=== PATIENT | female | born 1955 | race Native Hawaiian/Other Pacific Islander ===

== ENCOUNTER → 2018-08-04 08:59 | Outpatient (CLI) | payer BC, OTHER, MEDICAID, SELFPAY ==
--- NOTE | 2018-08-04 | DI.MRI.S_ITS ---
PROCEDURE: MR KNEE LT WO CON INDICATIONS: CHRONIC PAIN OF LEFT KNEE TECHNIQUE: Noncontrast sagittal PD fast spin echo and T2 fast spin echo with fat saturation, sagittal 3-D FLASH with fat saturation; coronal T1 spin echo and PD fast spin echo with fat saturation, and axial PD fast spin echo with fat saturation through the knee. COMPARISON: None. FINDINGS: Image quality: Excellent. Menisci: Lateral meniscus appears grossly intact. There is complex macerated tear of the medial meniscal body. There is also undersurface irregularity and signal change involving the posterior horn of the medial meniscus. Partial extrusion of the medial meniscal body Cruciate ligaments: The anterior and posterior cruciate ligaments appear intact. Medial structures: The medial collateral ligament appears intact, although medial bowling and adjacent soft tissue edema. This may be reactive to medial meniscal tear versus low-grade MCL sprain. The posterior oblique ligament, semimembranosus tendon insertions, oblique popliteal ligament, and meniscocapsular junction appear intact. Mild pes anserinus bursitis. Lateral structures: The lateral collateral ligament, long and short heads of the biceps femoris tendon appear intact. The popliteus tendon appears normal; the popliteofibular ligament appears intact. The posterosuperior and anteroinferior popliteomeniscal fascicles appear intact. The arcuate and fabellofibular ligaments appear intact, on either side of the lateral inferior geniculate artery. Iliotibial band appears normal. Anterior structures: Superficial infrapatellar and pretibial subcutaneous edema and fluid. The quadriceps and patellar tendons appear intact. Patellar alignment is normal. No femoral trochlear dysplasia or ventral trochlear prominence. No edema in the infrapatellar fat pad. Bones and cartilage: No bone marrow contusions or fractures. Within the medial compartment, there is diffuse partial-thickness loss of the femoral and tibial articular cartilage. Within the lateral compartment, no focal articular cartilage defect is seen. Within the patellofemoral compartment, diffuse patellar full-thickness articular cartilage loss. There is also partial-thickness loss of the cartilage overlying the central and lateral femoral trochlear Joint space: Moderate joint effusion is present. Multiple loose bodies are seen for example adjacent to the posterior aspect of the PCL, image 75 series 9. Additional loose body present within the medial joint space, image 12 series 11, image 19 series 6. IMPRESSION: Complex medial meniscal tear involving the body and posterior horn with partial extrusion. 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 Moderate joint effusion. Multiple loose bodies as detailed above. Mild pes anserinus bursitis. Prominent superficial infrapatellar and pretibial subcutaneous edema/fluid. Dictated by: Juan J Hawk M.D. on 08/04/2018 at 11:52 Approved by: Juan J Hawk M.D. on 08/04/2018 at 12:01
== END ==
PROVIDERS: PCP Family Medicine; Visit Provider Orthopaedic Surgery
DX: M23.42 Loose body in knee, left knee (principal); M25.562 Pain in left knee; G89.29 Other chronic pain; M17.12 Unilateral primary osteoarthritis, left knee; M25.462 Effusion, left knee; M70.52 Other bursitis of knee, left knee; R60.9 Edema, unspecified
CPT/HCPCS: 73721

== ENCOUNTER → 2018-11-22 17:30 | Outpatient (CLI) | payer BC, OTHER, MEDICAID, SELFPAY ==
--- NOTE | 2018-11-22 | DI.MRI.S_ITS ---
PROCEDURE: MR CERVICAL SPINE WO CON INDICATIONS: CERVICALGIA TECHNIQUE: Noncontrast sagittal T1 spin echo and T2 fast spin echo, sagittal STIR, foraminal oblique sagittal T2 fast spin echo, and axial gradient echo or T2 fast spin echo through the cervical spine. COMPARISON: None. FINDINGS: Image quality: Excellent. Alignment and Curvature: Straightening of the normal cervical lordosis and grade 1 anterolisthesis of C4 on C5. Presumed T2 vertebral body hemangioma Bone Marrow: Marrow demonstrates normal overall signal. Spinal Cord: Visualized spinal cord has normal size and signal. No cerebellar tonsillar herniation. Paraspinous Soft Tissues: No paravertebral masses. Prevertebral soft tissues are normal in thickness. C2-C3: Normal appearance. C3-C4: Normal appearance. C4-C5: Bilateral uncovertebral arthropathy and posterior intervening disc osteophyte complex, and bilateral facet arthropathy. Moderate canal narrowing. Mild bilateral foraminal stenosis, right greater than left. C5-C6: Bilateral uncovertebral arthropathy and posterior intervening disc osteophyte complex, and bilateral facet arthropathy. Superimposed left paracentral disc protrusion. Mild central canal narrowing predominantly left-sided. Moderate bilateral foraminal narrowing. C6-C7: Bilateral uncovertebral arthropathy and posterior intervening disc osteophyte complex, left greater than right. Bilateral facet arthropathy. Minimal central canal narrowing. No definite right foraminal stenosis. Severe left-sided foraminal narrowing C7-T1: Normal appearance. IMPRESSION: Mid to lower cervical spondylosis and diffuse facet arthropathy. Severe left C6-C7 foraminal stenoses. Moderate bilateral C5-C6 foraminal narrowing. Moderate C4-C5 canal narrowing. Dictated by: Juan J Hawk M.D. on 11/23/2018 at 9:03 Approved by: Juan J Hawk M.D. on 11/23/2018 at 9:22
--- NOTE | 2018-11-22 | DI.MRI.S_ITS ---
PROCEDURE: MR SHOULDER LT WO CON INDICATIONS: PAIN IN LEFT SHOULDER TECHNIQUE: Noncontrast oblique coronal T2 fast spin echo with fat saturation, oblique sagittal T1 spin echo and T2 fast spin echo with fat saturation, axial T1 spin echo and T2 fast spin echo with fat saturation through the shoulder. COMPARISON: [facility] [place], [place], XR SHOULDER 2+ VIEWS LEFT, 11/10/2018, 14:35. FINDINGS: Image quality: Diagnostic with mild motion artifact. Rotator cuff: The supraspinatus, infraspinatus, subscapularis, and teres minor appear intact. No rotator cuff fatty muscle atrophy. Bones and bursae: No bone marrow contusions or fractures. There is mild to moderate acromioclavicular joint degeneration. The acromion demonstrates conventional anatomy, without an os acromiale. Minimal subacromial-subdeltoid bursal fluid is present. Capsule and soft tissues: In the absence of intra-articular contrast, the labrum and glenohumeral ligaments appear grossly intact. The long head of the biceps tendon demonstrates normal location and morphology. The rotator interval appears normal, without fibrosis. The coracohumeral ligament is normal in thickness. IMPRESSION: 1. [id number] acromioclavicular joint degeneration with mild subacromial/subdeltoid bursitis. 2. No discrete rotator cuff tear. Dictated by: Everardo Hedrick M.D. on 11/23/2018 at 9:51 Approved by: Everardo Hedrick M.D. on 11/23/2018 at 10:33
== END ==
PROVIDERS: PCP Family Medicine; Visit Provider Orthopaedic Surgery
DX: M54.2 Cervicalgia (principal); M25.512 Pain in left shoulder; M47.812 Spondylosis without myelopathy or radiculopathy, cervical region; M48.02 Spinal stenosis, cervical region; M19.012 Primary osteoarthritis, left shoulder; M75.52 Bursitis of left shoulder
CPT/HCPCS: 72141; 73221

== ENCOUNTER 2021-01-14 13:49 | Emergency (ER) | payer BC, SELFPAY ==
[2021-01-14 13:59] VITALS: BP 111/63; PULSE 88; RESP 12; TEMP 36.7; O2SAT 99; BMI 30.7
--- NOTE | 2021-01-14 14:55 | ED_ITS ---
HPI - Back Pain/Injury <TYLER Dobbs - Last Filed: 01/14/21 19:13> General Chief Complaint: Urogenital-Female Stated Complaint: Can't Move, Can't Bend Over, Back Pain Time Seen by Provider: 01/14/21 14:51 Source: patient Mode of arrival: Ambulatory Limitations: no limitations History of Present Illness HPI Narrative: This is a 65 year female, nonsmoker, has past medical history s ignificant for rheumatoid arthritis, insomnia, remote history of kidney stone pants to ED with family with chief complain of nontraumatic bilateral low back pain wraps around the side bilaterally for last 3 days. Patient woke up the pain that has been progressively gotten worse with movements, lifting, bending over, twisting motion and with deep breathing. Patient denies fever, chills, nausea or vomiting. Patient reports she is continent for bowel and bladder function and denies saddle anesthesia. Patient denies history of back surgeries. Patient reports urinary frequency, urgency but denies burning with urination or hematuria. Patient thinks the cause of low back pain is due to my kidney. Patient reports past when she had kidney stone the pain felt similar. Patient denies chest pain, dyspnea, or abdominal pain. Patient denies usual skin rashes on affected site. Patient had a usual bowel movements yesterday. Patient describes pain as the sharpest, constant and 10/10. However, if she does not move and resting in one position, pain improves. Patient had taken Flexeril from the past use due to pinched nerve in cervial without any relief. She also had taken 2 tabs of Advil without improvements. Related Data Home Medications Medication Instructions Recorded Confirmed minocycline 100 mg PO QDAY #0 07/03/17 naproxen-esomeprazole [Vimovo] 1 tab PO BID #0 07/03/17 pantoprazole 40 mg PO BID #0 07/03/17 zolpidem [Ambien] PO HS #0 07/03/17 diphenhydramine HCl [Benadryl 25 mg PO Q6HP PRN #0 12/25/17 Allergy] ibuprofen [Advil Liqui-Gel] 200 mg PO #2 12/25/17 cyclobenzaprine mg 01/14/21 hydroxychloroquine 01/14/21 triazolam 01/14/21 Previous Rx's Medication Instructions Recorded hydrocodone-acetaminophen 1 tab PO Q8H PRN #10 tab 01/14/21 Allergies Allergy/AdvReac Type Severity Reaction Status Date / Time codeine [CODEINE] Allergy Unknown RASH, ITCHY Verified 01/14/21 16:35 Review of Systems <TYLER Dobbs - Last Filed: 01/14/21 19:13> Review of Systems Narrative: General: Denies fever, chills, fatigue, malaise, sweats. HEENT: Denies sinus pain, ear pain, sore throat, difficulty swallowing, dizziness. Respiratory: Denies dyspnea, cough, wheezing, hemoptysis, sputum. Cardiovascular: Denies chest pain, palpitations, orthopnea, edema. Gastrointestinal: Denies nausea, vomiting, abdominal pain, diarrhea, constipation, melena. : See HPI Musculoskeletal: See HPI Skin: Denies rash, skin lesions, or other. Neurologic: Denies weakness, headache, numbness, change in speech, confusion, seizures, incoordination. Psychiatric: No concerning psychosocial issues. 12-point review of systems is negative except for those stated above. Patient History <TYLER Dobbs - Last Filed: 01/14/21 19:13> Medical History (Updated 01/14/21 @ 17:57 by TYLER Dobbs) Kidney stone Surgical History (Updated 01/14/21 @ 15:22 by TYLER Dobbs) History of cholecystectomy Social History Smoking Status: Never smoker alcohol intake: never substance use type: does not use Smoking Status: Never smoker Substance Use Type: does not use Exam <TYLER Dobbs - Last Filed: 01/14/21 19:13> Narrative Exam Narrative: GEN: Alert, oriented x 3, well nourished, and appears to be in discomfort. With little movements, complaints of with facial grimacing and moaning and tearful. Ambulatory to room 13 from waiting area. Head: Normal cephalic, atraumatic. No scalp or temporal tenderness, palpable mass or rash. EYES: Pupils are equal, round, and reactive to light and accommodation. There is no subconjunctival hemorrhage, exudate and sclera non-icteric. ENT: Hearing grossly intact. Nose without bleeding, purulent discharge or deviation. Airway patent. Neck: Trachea in midline. No JVD, non-tender without lymphadenopathy. No masses or thyroid megaly. Supple, non-tender and no meningeal signs. CARDIAC: Normal regular rate and rhythm without murmurs, gallops, or rubs. No chest wall tenderness. No peripheral edema, cyanosis or pallor. Capillary refill is less than 2 seconds. RESPIRATORY: Lungs are clear to auscultate bilaterally. No cough, wheezes, rales, or rhonchi. No stridor, respiratory distress, increase work of breathing, or accessary muscle used. ABD: Abdomen soft, nontender and non-distended. No guarding or rebound tenderness to palpate. Bowel sounds are normal in all 4 quadrants. There is no palpable masses or organomegaly. EXT: Full painless ROM of all extremities with no loss of sensation, strength, effusion or edema. SKIN: Warm, dry, normal color for patient. No erythema, lesions or rash over visible areas. BACK: No spinous or paraspinous tenderness to palpate. No deformity or crepitance. No flank tenderness with percussion. negative leg raise. Bilateral lower extremities with intact sensation and equal strength. NEUROLOGICAL: Alert and oriented to place, time and person. Sensation and motor function intact bilaterally. No facial droops, dysphasia. PSYCHIATRIC: Good judgement and reason, without hallucinations, abnormal affect or abnormal behaviors during the examination. Patient is not suicidal. Initial Vital Signs Initial Vital Signs: Vital Signs Temperature 98.1 F 01/14/21 13:59 Pulse Rate 88 01/14/21 13:59 Respiratory Rate 12 01/14/21 13:59 Blood Pressure 111/63 01/14/21 13:59 Pulse Oximetry 99 01/14/21 13:59 <Mahamed Rivera DO - Last Filed: 01/15/21 07:14> Initial Vital Signs Initial Vital Signs: Vital Signs Temperature 98.1 F 01/14/21 13:59 Pulse Rate 88 01/14/21 13:59 Respiratory Rate 12 01/14/21 13:59 Blood Pressure 111/63 01/14/21 13:59 Pulse Oximetry 99 01/14/21 13:59 Scores <TYLER Dobbs - Last Filed: 01/14/21 19:13> GCS Rashawn coma scale eye opening: Spontaneous Rashawn coma scale verbal response: Orientated Rashawn coma scale motor response: Obey commands Rashawn coma scale total score: 15 qSOFA Altered Mental Status (GCS <15): No Respiratory rate greater than/equal to 22: No Systolic blood pressure less than or equal to 100: No qSOFA Total: 0 0-1 Not High Risk 1-3 High risk Course <Joe TYLER Youssef - Last Filed: 01/14/21 19:13> Orders Ordered: Discontinued Medications Hydrocodone Bitart/Acetaminophen (Hydrocodone/Acet 5/325 Tablet) 1 tab PO NOW ONE Stop: 01/14/21 17:58 Last Admin: 01/14/21 18:39 Dose: 1 tab Documented by: MORENA Cyclobenzaprine HCl (Cyclobenzaprine 10 Mg Tablet) 10 mg PO NOW ONE Stop: 01/14/21 17:58 Last Admin: 01/14/21 18:39 Dose: 10 mg Documented by: MORENA Hydromorphone HCl (Hydromorphone 0.5 Mg Inj) 0.5 mg IV NOW ONE Stop: 01/14/21 16:29 Last Admin: 01/14/21 16:36 Dose: 0.5 mg Documented by: MORENA Sodium Chloride (Normal Saline 0.9%) 1,000 mls @ 1,000 mls/hr IV BOLUS ONE Stop: 01/14/21 17:51 Last Infusion: 01/14/21 19:24 Dose: 0 mls/hr Documented by: Admin: 01/14/21 17:10 Dose: 1,000 mls/hr Documented by: MORENA Ketorolac Tromethamine (Ketorolac 30 Mg/Ml Vial) 15 mg IV NOW ONE Stop: 01/14/21 14:52 Last Admin: 01/14/21 15:30 Dose: 15 mg Documented by: MORENA Lidocaine (Lidocaine Patch 1 Each Adh..Patch) 1 each TOP NOW ONE Stop: 01/14/21 16:55 Last Admin: 01/14/21 17:09 Dose: 1 each Documented by: MORENA Lidocaine (Remove Lidocaine Patch) 1 each TOP 0500 [facility] Reevaluation(s) Reevaluation #1: Patient reports pain recurs with movements and rates as 8 to 9/10 and requesting stronger medications after Toradol. Time: 16:25 Reevaluation #2: Patient reports pain much improved. Discussed with patient on unremarkable CT results along labs with patient. Informed patient will get lumbar x-ray test done rule out any bony abnormality. Time: 16:59 Reevaluation #3: No allergic reaction after the [place]. Will be discharged to home with [place] pain management Time: 19:09 Vital Signs Vital signs: Vital Signs - 8 hr 01/14/21 13:59 Temperature 98.1 F Pulse Rate 88 Respiratory Rate 12 Blood Pressure 111/63 Pulse Oximetry 99 <Mahamed Rivera DO - Last Filed: 01/15/21 07:14> Orders Ordered: Discontinued Medications Hydrocodone Bitart/Acetaminophen (Hydrocodone/Acet 5/325 Tablet) 1 tab PO NOW ONE Stop: 01/14/21 17:58 Last Admin: 01/14/21 18:39 Dose: 1 tab Documented by: MORENA Cyclobenzaprine HCl (Cyclobenzaprine 10 Mg Tablet) 10 mg PO NOW ONE Stop: 01/14/21 17:58 Last Admin: 01/14/21 18:39 Dose: 10 mg Documented by: MORENA Hydromorphone HCl (Hydromorphone 0.5 Mg Inj) 0.5 mg IV NOW ONE Stop: 01/14/21 16:29 Last Admin: 01/14/21 16:36 Dose: 0.5 mg Documented by: MORENA Sodium Chloride (Normal Saline 0.9%) 1,000 mls @ 1,000 mls/hr IV BOLUS ONE Stop: 01/14/21 17:51 Last Infusion: 01/14/21 19:24 Dose: 0 mls/hr Documented by: Admin: 01/14/21 17:10 Dose: 1,000 mls/hr Documented by: MORENA Ketorolac Tromethamine (Ketorolac 30 Mg/Ml Vial) 15 mg IV NOW ONE Stop: 01/14/21 14:52 Last Admin: 01/14/21 15:30 Dose: 15 mg Documented by: MORENA Lidocaine (Lidocaine Patch 1 Each Adh..Patch) 1 each TOP NOW ONE Stop: 01/14/21 16:55 Last Admin: 01/14/21 17:09 Dose: 1 each Documented by: MORENA Lidocaine (Remove Lidocaine Patch) 1 each TOP 0500 [facility] Vital Signs Vital signs: Vital Signs - 8 hr 01/14/21 13:59 Temperature 98.1 F Pulse Rate 88 Respiratory Rate 12 Blood Pressure 111/63 Pulse Oximetry 99 MDM - Back Pain/Injury <Joe MikaelTYLER - Last Filed: 01/14/21 19:13> Differential Diagnosis Differential diagnosis: Likely strain of lumbar region, renal colic, pyelonephritis, AAA and discitis Medical Records Attestation: I reviewed the patient's medical records. Lab Data Attestation: I reviewed the patient's lab results. Result diagrams: 01/14/21 15:38 01/14/21 15:38 Labs: Lab Results 01/14/21 01/14/21 Range/Units 15:38 15:38 WBC 7.2 (4.5-11.0) X10^3/uL RBC 4.36 (4.0-5.2) X10^6/uL Hgb 12.9 (12.0-16.0) g/dL Hct 37.4 (36-46) % MCV 85.9 (80-100) fL MCH 29.6 (26-34) PG MCHC 34.4 (30-36) % RDW 13.3 (11.6-14.8) % Plt Count 277 (150-400) X10^3/uL Neut % (Auto) 47.5 L (50-75) % Lymph % (Auto) 38.2 (25-40) % Sargent % (Auto) 10.1 (3-14) % Eos % (Auto) 3.3 (2-4) % Baso % (Auto) 0.9 (0-2) % Neut # (Auto) 3400 (1938-4535) /uL Lymph # (Auto) 2700 (1609-8918) /uL Sargent # (Auto) 700 (0-900) /uL Eos # (Auto) 200 (0-450) /uL Baso # (Auto) 100 (0-100) /uL Sodium 140 (137-145) mmol/L Potassium 4.1 (3.4-5.1) mmol/L Chloride 105 (98-107) mmol/L Carbon Dioxide 30 (22-32) mmol/L BUN 18 H (7-17) mg/dL Creatinine 0.53 (0.52-1.04) mg/dL Estimated GFR > 60.0 (>60) mL/min BUN/Creatinine Ratio 34.0 H (6-22) Glucose 96 (80-110) mg/dL Calcium 9.2 (8.4-10.2) mg/dL Total Bilirubin 0.2 (0.2-1.3) mg/dL AST 35 (14-36) IU/L ALT 18 (<35) IU/L Alkaline Phosphatase 79 (38-126) U/L Total Protein 7.3 (6.3-8.2) g/dL Albumin 4.2 (3.5-5.0) g/dL Globulin 3.1 (1.7-4.1) g/dL Albumin/Globulin Ratio 1.4 (1.0-2.8) Urine Dip Bedside Urine Glucose Negative Bedside Urine Bilirubin - Negative Bedside Urine Ketone - Negative Urine Specific Carlton 1.025 Bedside Urine Occult Blood - Negative Bedside Urine pH 6 Bedside Urine Protein - Negative Bedside Urine Urobilinogen - Negative Bedside Urine Nitrite - Negative Bedside Urine Leukocytes - Negative Esterase Imaging Data CT-KUB: Radiologist's Impression: [address] [id number] Scan ReportSigned Patient: Kita Cohen MMR#: [id number]: 6Acct:[id number]/Sex: 65 / FDate of Service: 01/14/21Loc: EDAccession Number: [id number] Procedure: CT kidney ureter bladder (KUB) Ordering Provider: Joe Youssef PROCEDURE: CT KIDNEY URETER BLADDER (KUB) INDICATIONS: bilateral low back pain TECHNIQUE: Noncontrast 5 mm thick sections acquired from the diaphragms to the symphysis. 5 mm thick coronal and sagittal reformats were then performed. For radiation dose reduction, the following was used: automated exposure control, adjustment of mA and/or kV according to patient size. COMPARISON: None. FINDINGS: Image quality: Excellent. Lung bases: Lung bases are clear. Visualized portion of right breast implant is grossly intact. Heart size is normal. Urinary system: Both kidneys are normal in size. No kidney stones. No hydronephrosis or perinephric fat stranding. There is suggestion of a midpole left renal cyst measures 1.5 cm in size. Both ureters appear non-dilated throughout their expected courses. Bladder wall thickness is normal; no calcified bladder stones. Other solid organs: Liver is normal in size. Gallbladder is surgically ab sent.. Pancreas is normal in contours. Spleen is normal in size. No adrenal nodules. Peritoneum and bowel: Unenhanced bowel loops demonstrate normal wall thickness and caliber. No free fluid or air. Nodes and vessels: No retroperitoneal or mesenteric adenopathy by size criteria. Surgical clips are noted in bilateral retroperitoneal space anterior to the psoas muscles. Aorta and inferior vena cava are normal in caliber. Abdominal wall: No ventral hernias. Pelvis: No free pelvic fluid. No inguinal hernias or adenopathy. Bones: No suspicious bony lesions. No vertebral body compression fractures. IMPRESSION: 1. No renal stone or hydronephrosis. No gross abnormality is seen in bilateral ureters and urinary bladder. 2. No bowel obstruction or abnormal bowel wall thickening. No free fluid or free air. 3. Postsurgical changes in bilateral retroperitoneal space as above, suggest clinical correlation. Dictated by: Wilian Herrera M.D. on 01/14/2021 at 16:21 Approved by: Wilian Herrera M.D. 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 COMPARISON: Located Within [facility], CT, CT KIDNEY URETER BLADDER (KUB), 01/14/2021, 15:57. FINDINGS: Bones: 5 [id number] vertebrae are present. There is normal bony alignment. No vertebral body compression fractures. No suspicious bony lesions. Sclerotic arthropathy noted in the lower lumbar spine. Soft tissues: Overlying bowel gas pattern is normal. No suspicious soft tissue calcifications. Vascular paraspinal collaterals and the surgical clips in the right upper quadrant noted. 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 on 01/14/2021 at 16:29 Approved by: Nico Bolanos M.D. on 01/14/2021 at 16:40 MDM Narrative Medical decision making narrative: This is a 65 year female who presents to ED with chief complain of 3 day duration of bilateral low back pain into bilateral side which has been progressively worse. Patient is not currently on anticoagulants, history of cancers, back surgeries, cardiac problems or hyperlipidemia. Patient denies fever, chills or other constitutional symptoms. Urine test is negative for infection. Normal H&H of 12.9/37.4. No leukocytosis to consider other infectious etiology. Kidney functions with normal creatinine of 0.53 and estimated GFR >60. Patient is dehydrated with elevated BUN of 18 and BUN/creatinine ratio of 34.0. Concerned for AAA, kidney abnormality and etc, CT of KUB ordered. CT test shows no renal stones or hydronephrosis. Bowel obstructions or fluid or free air. Postsurgical changes in bilateral retroperitoneal space with surgical clips after the delivery of her son more than 40 years ago which she was not able to recall initially. Pain has managed with IV Toradol with limited improvement. Patient medicated with additional Dilaudid and Lidocaine patch. Lumbar x-ray test shows degenerative arthropathy in lower lumbar spine and no compression fractures appreciated. For trial dose given patient has allergic to codeine has no history of can [place], patient was medicated with Flexeril and [place] dose before discharged to home without reactions. Pain moderately improved while in ED. patient advised to follow-up with Dr. Padron and return precautions discussed which she verbalized understanding in agreement with treatment plan. Discussed narcotic pain medication precautions and advised to avoid taking with Ambien, Flexeril at the same time. <Mahamed Rivera, - Last Filed: 01/15/21 07:14> Lab Data Labs: Lab Results 01/14/21 01/14/21 Range/Units 15:38 15:38 WBC 7.2 (4.5-11.0) X10^3/uL RBC 4.36 (4.0-5.2) X10^6/uL Hgb 12.9 (12.0-16.0) g/dL Hct 37.4 (36-46) % MCV 85.9 (80-100) fL MCH 29.6 (26-34) PG MCHC 34.4 (30-36) % RDW 13.3 (11.6-14.8) % Plt Count 277 (150-400) X10^3/uL Neut % (Auto) 47.5 L (50-75) % Lymph % (Auto) 38.2 (25-40) % Sargent % (Auto) 10.1 (3-14) % Eos % (Auto) 3.3 (2-4) % Baso % (Auto) 0.9 (0-2) % Neut # (Auto) 3400 (7790-4685) /uL Lymph # (Auto) 2700 (3753-9667) /uL Sargent # (Auto) 700 (0-900) /uL Eos # (Auto) 200 (0-450) /uL Baso # (Auto) 100 (0-100) /uL Sodium 140 (137-145) mmol/L Potassium 4.1 (3.4-5.1) mmol/L Chloride 105 (98-107) mmol/L Carbon Dioxide 30 (22-32) mmol/L BUN 18 H (7-17) mg/dL Creatinine 0.53 (0.52-1.04) mg/dL Estimated GFR > 60.0 (>60) mL/min BUN/Creatinine Ratio 34.0 H (6-22) Glucose 96 (80-110) mg/dL Calcium 9.2 (8.4-10.2) mg/dL Total Bilirubin 0.2 (0.2-1.3) mg/dL AST 35 (14-36) IU/L ALT 18 (<35) IU/L Alkaline Phosphatase 79 (38-126) U/L Total Protein 7.3 (6.3-8.2) g/dL Albumin 4.2 (3.5-5.0) g/dL Globulin 3.1 (1.7-4.1) g/dL Albumin/Globulin Ratio 1.4 (1.0-2.8) Urine Dip Bedside Urine Glucose Negative Bedside Urine Bilirubin - Negative Bedside Urine Ketone - Negative Urine Specific Carlton 1.025 Bedside Urine Occult Blood - Negative Bedside Urine pH 6 Bedside Urine Protein - Negative Bedside Urine Urobilinogen - Negative Bedside Urine Nitrite - Negative Bedside Urine Leukocytes - Negative Esterase Discharge Plan Departure Patient Disposition: Home Clinical Impression: Low back pain Qualifiers: Chronicity: acute Back pain laterality: bilateral Sciatica presence: without sciatica Qualified Code(s): M54.5 - Low back pain Instructions: DI for Low Back Pain Activity Restrictions/Additional Instructions: You have been diagnosed with [bilateral low back pain. Labs are unremarkable except mild dehydration. CT test of abdomen pelvis out acute findings. Lumbar spine test shows degenerative arthropathy in the lower lumbar spine. Urine test was negative for infection.]. What to do: *Take your medications as directed. You were treated with IV Toradol, Dilaudid, Lido patch in ED and medicated with [place] and Flexeril before dc to home. You can continue to use [id number] lidocaine patch and using Flexeril. Please avoid taking [place], Ambien, Flexeril at the same time since this can cause increasing in sedation. Lidocaine patch stays on for 12 hours and off for 12 hours. You can continue to take NSAIDs including ibuprofen, Naprosyn, Advil with food as needed for pain. You can add [id number] Tylenol 650 mg up to 3 times a day as needed for pain. *Follow up with your primary care provider in 2-3 days, call for an appointment. Let them know you were seen in the ED and that we asked you to be seen in follow up. *Return to ED if you have any new, worsening, or concerning symptoms, such as [worsening pain, continence, numbness/weakness/tingling to lower extremities, unusual rashes on her back, fever, chest pain, breathing difficulty or any acute concerns]. Prescriptions: New hydrocodone-acetaminophen 5-325 mg tablet 1 tab PO Q8H PRN (Reason: pain) Qty: 10 RF: 0 No Action pantoprazole 40 MG tablet,delayed release (DR/EC) 40 mg PO BID Qty: 0 RF: 0 zolpidem [Ambien] 10 mg tablet PO HS Qty: 0 RF: 0 minocycline 100 MG capsule 100 mg PO QDAY Qty: 0 RF: 0 naproxen-esomeprazole [Vimovo] 500 MG/20 MG tablet,IR,delayed rel,biphasic 1 tab PO BID Qty: 0 RF: 0 diphenhydramine HCl [Benadryl Allergy] 25 MG tablet 25 mg PO Q6HP PRNQty: 0 RF: 0 ibuprofen [Advil Liqui-Gel] 200 MG capsule 200 mg PO Qty: 2 RF: 0 cyclobenzaprine 10 mg tablet RF: 0 triazolam 0.125 mg tablet RF: 0 hydroxychloroquine 200 mg tablet RF: 0 Referrals: Daily Phan DO [Primary Care Provider] -
[2021-01-14] MEDS: KETOROLAC 30 MG/ML VIAL 15 MG IV (15:30)
--- NOTE | 2021-01-14 15:39 | DI.CT.S_ITS ---
PROCEDURE: CT KIDNEY URETER BLADDER (KUB) INDICATIONS: bilateral low back pain TECHNIQUE: Noncontrast 5 mm thick sections acquired from the diaphragms to the symphysis. 5 mm thick coronal and sagittal reformats were then performed. For radiation dose reduction, the following was used: automated exposure control, adjustment of mA and/or kV according to patient size. COMPARISON: None. FINDINGS: Image quality: Excellent. Lung bases: Lung bases are clear. Visualized portion of right breast implant is grossly intact. Heart size is normal. Urinary system: Both kidneys are normal in size. No kidney stones. No hydronephrosis or perinephric fat stranding. There is suggestion of a midpole left renal cyst measures 1.5 cm in size. Both ureters appear non-dilated throughout their expected courses. Bladder wall thickness is normal; no calcified bladder stones. Other solid organs: Liver is normal in size. Gallbladder is surgically absent.. Pancreas is normal in contours. Spleen is normal in size. No adrenal nodules. Peritoneum and bowel: Unenhanced bowel loops demonstrate normal wall thickness and caliber. No free fluid or air. Nodes and vessels: No retroperitoneal or mesenteric adenopathy by size criteria. Surgical clips are noted in bilateral retroperitoneal space anterior to the psoas muscles. Aorta and inferior vena cava are normal in caliber. Abdominal wall: No ventral hernias. Pelvis: No free pelvic fluid. No inguinal hernias or adenopathy. Bones: No suspicious bony lesions. No vertebral body compression fractures. IMPRESSION: 1. No renal stone or hydronephrosis. No gross abnormality is seen in bilateral ureters and urinary bladder. 2. No bowel obstruction or abnormal bowel wall thickening. No free fluid or free air. 3. Postsurgical changes in bilateral retroperitoneal space as above, suggest clinical correlation. Dictated by: Wilian Herrera M.D. on 01/14/2021 at 16:21 Approved by: Wilian Herrera M.D. on 01/14/2021 at 16:28
[2021-01-14 15:51] LABS: Add Manual Diff / Slide Review NO; Basophils Absolute Auto 100 /uL (0-100); Basophils Percent Auto 0.9 % (0-2); Eosinophils Absolute Auto 200 /uL (0-450); Eosinophils Percent Auto 3.3 % (2-4); Hematocrit 37.4 % (36-46); Hemoglobin 12.9 g/dL (12.0-16.0); Lymphocytes Absolute Auto 2700 /uL (1100-4500); Lymphocytes Percent Auto 38.2 % (25-40); Mean Corpuscular HGB Conc 34.4 % (30-36); Mean Corpuscular Hemoglobin 29.6 PG (26-34); Mean Corpuscular Volume 85.9 fL (80-100); Monocytes Absolute Auto 700 /uL (0-900); Monocytes Percent Auto 10.1 % (3-14); Neutrophils Absolute Auto 3400 /uL (1500-7000); Neutrophils Percent Auto 47.5 % (50-75); Platelet Count 277 X10^3/uL (150-400); Red Blood Cell Count 4.36 X10^6/uL (4.0-5.2); Red Cell Distribution Width 13.3 % (11.6-14.8); White Blood Cell Count 7.2 X10^3/uL (4.5-11.0)
[2021-01-14] MEDS: HYDROMORPHONE 0.5 MG INJ IV (16:36)
[2021-01-14 16:40] LABS: Alanine Aminotransferase 18 IU/L (<35); Albumin 4.2 g/dL (3.5-5.0); Albumin Globulin Ratio 1.4 (1.0-2.8); Alkaline Phosphatase 79 U/L (38-126); Aspartate Aminotransferase 35 IU/L (14-36); Bilirubin Total 0.2 mg/dL (0.2-1.3); Blood Urea Nitrogen 18 mg/dL (7-17); Calcium 9.2 mg/dL (8.4-10.2); Carbon Dioxide 30 mmol/L (22-32); Chloride 105 mmol/L (98-107); Estimated Glomerular Filt Rate > 60.0 mL/min (>60); Globulin 3.1 g/dL (1.7-4.1); Glucose 96 mg/dL (80-110); HEMOLYSIS < 15 (0-50); Potassium 4.1 mmol/L (3.4-5.1); Sodium 140 mmol/L (137-145); Total Protein 7.3 g/dL (6.3-8.2)
--- NOTE | 2021-01-14 16:52 | DI.RAD.S_ITS ---
PROCEDURE: XR LUMBAR SPINE 2-3V INDICATIONS: bilateral low back pain TECHNIQUE: 3 views of the lumbar spine were acquired. COMPARISON: [facility], CT, CT KIDNEY URETER BLADDER (KUB), 01/14/2021, 15:57. FINDINGS: Bones: 5 [id number] vertebrae are present. There is normal bony alignment. No vertebral body compression fractures. No suspicious bony lesions. Sclerotic arthropathy noted in the lower lumbar spine. Soft tissues: Overlying bowel gas pattern is normal. No suspicious soft tissue calcifications. Vascular paraspinal collaterals and the surgical clips in the right upper quadrant noted. 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 on 01/14/2021 at 16:29 Approved by: Nico Bolanos M.D. on 01/14/2021 at 16:40
[2021-01-14] MEDS: LIDOCAINE PATCH 1 EACH ADH..PATCH TOP (17:09)
[2021-01-14] MEDS: SODIUM CHLORIDE 0.9% 1,000 ML 1000 ML IV (17:10)
[2021-01-14] MEDS: CYCLOBENZAPRINE 10 MG TABLET PO (18:39)
[2021-01-14] MEDS: HYDROCODONE/ACET 5/325 TABLET 1 TAB PO (18:39)
[2021-01-14 19:47] VITALS: BP 113/58; PULSE 78; RESP 22; O2SAT 100
== END 2021-01-14 19:50 | disposition home or self-care (01) ==
PROVIDERS: Emergency Provider Nurse Practitioner Family; PCP Family Medicine
DX: M54.5 Low back pain (principal)
CPT/HCPCS: 72100; 74176; 80053; 81003; 85025; 96361; 96374; 96375; 99284; J1170; J1885